=== PATIENT | female | born 1990 | race Caucasian/White ===

== ENCOUNTER 2020-07-02 02:54 | Emergency (ER) | payer MEDICAID ==
[~2020-07-02] VITALS: Ht 175.3 cm; Wt 200.0 kg
[2020-07-02 02:54] VITALS: BP 138/78
== END 2020-07-02 05:57 | disposition home or self-care (01) ==
LOC: ER 02:54
DX: J45.901 Unspecified asthma with (acute) exacerbation (principal); J12.9 Viral pneumonia, unspecified
CPT/HCPCS: 71045; 99283